=== PATIENT | male | born 1975 | race Caucasian/White ===

== ENCOUNTER 2018-09-29 22:18 | Inpatient (IN) | payer OTHER ==
[2018-09-29] MEDS ORDERED: ACETAMINOPHEN 500 MG TAB PO PRN (23:19)
[2018-09-29] MEDS ORDERED: ALPRAZOLAM 0.25 MG TABLET PO PRN (23:19)
[2018-09-29] MEDS ORDERED: ONDANSETRON 4 MG/2 ML VIAL IV PRN (23:19)
[2018-09-29] MEDS ORDERED: Levofloxacin500mg IV 500 MG/100 ML BAG IV SCH (23:45)
[2018-09-30] MEDS: NA CHLORIDE 0.9% 1,000 ML IV SCH ×3 (00:08→19:45)
[2018-09-30] MEDS: MORPHINE 2 MG/ML SYR IV PRN ×5 (00:38→21:35)
[2018-09-30] MEDS: METRONIDAZOLE 500mg IVPB 500 MG/100 ML BAG IV SCH ×4 (00:42→17:22)
[2018-09-30] MEDS ORDERED: Levofloxacin500mg IV 500 MG/100 ML BAG IV ONE (01:00)
[2018-09-30 03:36] VITALS: BMI 26.4
[2018-09-30 06:08] LABS: Absolute Lymphocytes (CBC) 1.2 K/uL (0.7-4.9); Absolute Monocytes 1.1 K/uL (0.1-1.3); Absolute Neutrophil 7.2 K/uL (1.8-8.0); Basophils % 0.5 % (0-1.3); Eosinophils % 4.5 % (0-4.4); Hematocrit 42.9 % (39.6-49.0); Lymphocytes % 12.4 % (15.3-44.8); MPV 9.4 fL (7.6-11.3); Monocytes % 10.6 % (3.3-12.3); RBC Red Blood Cell Count 4.71 M/uL (4.33-5.43)
[2018-09-30 06:18] LABS: Albumin 2.9 g/dL (3.4-5.0); Bilirubin Total 0.3 mg/dL (0.2-1.0); Potassium 3.9 mmol/L (3.5-5.1); Protein, Total 6.7 g/dL (6.4-8.2)
[2018-09-30] MEDS ORDERED: POTASSIUM PHOS IN 0.9 % NACL 15 MMOL/250 ML BAG IV ONE (07:53)
[2018-09-30] MEDS ORDERED: KCL 20 MEQ/100 mL IVPB 20 MEQ/100 ML BAG IV SCH (08:00)
[2018-09-30] MEDS ORDERED: INFLUENZA VACCINE (for 3y+) 0.5 ML DOSE IMVAC ONE (08:00)
--- NOTE | 2018-09-30 08:57 | P.HP ---
Certification for Inpatient Patient admitted to: Inpatient With expected LOS: >2 Midnights Patient will require the following post-hospital care: None Practitioner: I am a practitioner with admitting privileges, knowledge of patient current condition, hospital course, and medical plan of care. Services: Services provided to patient in accordance with Admission requirements found in Title 42 Section 412.3 of the Code of Federal Regulations Patient History Date of Service: 09/29/18 Reason for admission: Diverticulitis with microabscesses History of Present Illness: Patient is a 43-year-old gentleman who came to the ER across the street with abdominal pain. Patient was seen at [place] emergency room. Patient had his CT scan performed which showed diverticulitis. Patient also has some microabscesses. He was transfer to our hospital for further treatment with IV antibiotics and surgical consultation. Patient has had prior diverticulitis with no follow-up call colonoscopy. He will need to get this scheduled as an outpatient. At this time, will admit him to the hospital for IV hydration and antibiotic therapy. Allergies Penicillins Allergy (Verified 09/29/18 23:33) [facility] Home Medications: Naproxen Sodium [Aleve] 220 mg PO Q6H 09/29/18 Omeprazole [Prilosec] 40 mg PO DAILY 09/29/18 - Past Medical/Surgical History Has patient received pneumonia vaccine in the past: No Diabetic: No -: Diverticulosis/Diverticulitis 2 years ago -: Ghanshyam Hearing loss -: GERD -: Stapendectomy - Family History Father Medical History: Heart disease, Hypertension, Cancer Notes: Prostate Cx Mother Medical History: Heart disease, Hypertension, Diabetes, Cancer Notes: Breast Cx - Social History Smoking Status: Never smoker Alcohol use: Yes CD- Drugs: No Caffeine use: Yes Place of Residence: Home Review of Systems 10-point ROS is otherwise unremarkable Physical Examination - Vital Signs Temperature: 98.1 F Blood Pressure: 110/65 Pulse: 72 Respirations: 16 Pulse Ox (%): 97 - Physical Exam General: Alert, In no apparent distress, Oriented x3 HEENT: Atraumatic, PERRLA, Mucous membr. moist/pink, EOMI, Sclerae nonicteric Neck: Supple, 2+ carotid pulse no bruit, No LAD, Without JVD or thyroid abnormality Respiratory: Clear to auscultation bilaterally, Normal air movement Cardiovascular: Regular rate/rhythm, Normal S1 S2, No murmurs Gastrointestinal: Normal bowel sounds, Soft and benign, Non-distended, Tenderness, Rebound, Guarding Musculoskeletal: No clubbing, No swelling, No tenderness Integumentary: No rashes Neurological: Normal gait, Normal speech, Normal strength at 5/5 x4 extr, Normal tone, Sensation intact, Cranial nerves 3-12 intact, Normal affect Lymphatics: No axilla or inguinal lymphadenopathy - Studies Laboratory Data (last 24 hrs) 09/30/18 05:40: Sodium 142, Potassium 3.9, BUN 16, Creatinine 0.96, Glucose 105 , Phosphorus 2.0 L, Magnesium 2.0, Total Bilirubin 0.3, AST 12 L, ALT 24, Alkaline Phosphatase 99 09/30/18 05:40: WBC 9.9, Hgb 14.5, Hct 42.9, Plt Count 240 Assessment & Plan - Problems (Diagnosis) (1) Diverticulitis of colon with perforation Current Visit: Yes Status: Acute - Plan 1. Continue with IV hydration 2. Continue with IV antibiotics 3. Continue with pain control 4. NPO 5. General surgery consultation; outpatient colonoscopy in 6-12 weeks 6. Serial H&H, and we will monitor CBC, BMP, LFTs and lipase along with electrolytes. 7. GI and DVT prophylaxis Discharge Plan: Home Plan to discharge in: Greater than 2 days - Advance Directives Does patient have a Living Will: No Does patient have a Durable POA for Healthcare: No - Code Status/Comfort Care Code Status Assessed: Yes Code Status: Full Code Critical Care: No Time Spent Managing PTS Care (In Minutes): 45
[2018-09-30] MEDS: ENOXAPARIN 40 MG/0.4 ML SQ SCH (09:06)
--- NOTE | 2018-09-30 17:54 | P.PN ---
Subjective Date of Service: 09/30/18 Chief Complaint: Diverticulitis with microabscesses pt still having abdominal pain, denied nausea or vomting ,pt is NPO no diarrhea today continue abx IV advance diet as tolerated Review of Systems 10-point ROS is otherwise unremarkable Physical Examination - Vital Signs Temperature: 98.7 F Blood Pressure: 119/75 Pulse: 56 Respirations: 16 Pulse Ox (%): 98 - Physical Exam General: Alert, Oriented x3 HEENT: Atraumatic, Normocephalic, PERRLA Neck: Supple, JVD not distended Respiratory: Clear to auscultation bilaterally, Normal air movement Cardiovascular: Normal pulses, Regular rate/rhythm, Normal S1 S2 Gastrointestinal: Normal bowel sounds, Soft and benign, Non-distended, Tenderness Neurological: Normal strength at 5/5 x4 extr - Studies Laboratory Data (last 24 hrs) 09/30/18 05:40: Sodium 142, Potassium 3.9, BUN 16, Creatinine 0.96, Glucose 105 , Phosphorus 2.0 L, Magnesium 2.0, Total Bilirubin 0.3, AST 12 L, ALT 24, Alkaline Phosphatase 99 09/30/18 05:40: WBC 9.9, Hgb 14.5, Hct 42.9, Plt Count 240 Assessment And Plan - Current Problems (Diagnosis) (1) Diverticulitis Current Visit: Yes Status: Acute - Plan diverticulitis with micro abscess Keep NPO for now IV fluid hydration IV antibiotics Advance diet as tolerated Surgery consult Pain management DVT prophylaxis Discharge Plan: Home Plan to discharge in: 48 Hours
[2018-09-30] MEDS: Levofloxacin500mg IV 500 MG/100 ML BAG IV SCH (21:35)
[2018-10-01] MEDS: METRONIDAZOLE 500mg IVPB 500 MG/100 ML BAG IV SCH ×5 (00:35→23:39)
[2018-10-01] MEDS ORDERED: SODIUM CHLORIDE 0.9% 10ML INJ IV PRN (00:43)
[2018-10-01] MEDS ORDERED: PANTOPRAZOLE 40 MG INJ IVP ONE (00:43)
[2018-10-01] MEDS: NA CHLORIDE 0.9% 1,000 ML IV SCH ×3 (06:30→21:19)
[2018-10-01] MEDS: ENOXAPARIN 40 MG/0.4 ML SQ SCH (08:33)
[2018-10-01] MEDS ORDERED: POTASSIUM PHOS IN 0.9 % NACL 15 MMOL/250 ML BAG IV ONE (09:00)
--- NOTE | 2018-10-01 12:58 | P.PN ---
Subjective Date of Service: 10/01/18 Chief Complaint: Diverticulitis with microabscesses Subjective: Improving (Pain free at this time, hungry, passing gas) Physical Examination - Vital Signs Temperature: 98 F Blood Pressure: 112/69 Pulse: 78 Respirations: 16 Pulse Ox (%): 98 - Physical Exam General: Alert, Oriented x3 Gastrointestinal: Soft and benign, No tenderness, No masses, No rebound, No guarding Assessment And Plan - Current Problems (Diagnosis) (1) Diverticulitis Current Visit: Yes Status: Acute Plan: - clear liquid diet - advance to low residue - serial exams - DC soon with follow up in clinic in 2-4 weeks to plan colonoscopy
--- NOTE | 2018-10-01 17:19 | P.PN ---
Subjective Date of Service: 10/01/18 Chief Complaint: Diverticulitis with microabscesses pt is sen and examined feeling better denied abdomial pain diet advanced to clear liquid and if pt tolerates advance to low residue Review of Systems 10-point ROS is otherwise unremarkable Physical Examination - Vital Signs Temperature: 98.7 F Blood Pressure: 118/75 Pulse: 73 Respirations: 16 Pulse Ox (%): 98 - Physical Exam General: Alert, Oriented x3 HEENT: Atraumatic, Normocephalic, PERRLA Neck: JVD not distended Respiratory: Clear to auscultation bilaterally, Normal air movement Cardiovascular: Normal pulses, Regular rate/rhythm, Normal S1 S2 Gastrointestinal: Normal bowel sounds, Soft and benign, Non-distended Musculoskeletal: No clubbing, No swelling Integumentary: No rashes Neurological: Normal speech, Normal strength at 5/5 x4 extr Assessment And Plan - Current Problems (Diagnosis) (1) Diverticulitis Current Visit: Yes Status: Acute - Plan diverticulitis with micro abscess advance diet as tolerated IV fluid hydration IV antibiotics Surgery consult Pain management DVT prophylaxis Discharge Plan: Home Plan to discharge in: 24 Hours
--- NOTE | 2018-10-01 17:39 | CON ---
Date of Consultation: 09/30/2018 Brief History Of Present Illness: The patient is a 43-year-old gentleman, who came to the ER from [facility] across the street where he developed left lower quadrant abdominal pain, similar to previous epis odes before in the past. He noted that the pain got significantly worse and increased. He had decre ased output and had some nausea associated with it and minimal nausea. He has had similar episodes a pproximately 2 years prior and has a history of known diverticulitis, which was treated approximately 2 years ago of a similar type. He went to [facility] at that time and ultimately had a CT scan, which sh owed an intramural abscess approximately 1 cm in this region of the sigmoid colon with evidence of si gmoid diverticulitis. As such, he was transferred here for further treatment. Past Medical History: Significant for diverticulitis, bilateral hearing loss, GERD. Past Surgical History: Stapedectomy. Family History: Father has history of heart disease, hypertension, cancer, and prostate cancer. Allergies: PENICILLIN. Home Medications: Include Aleve and Prilosec. Social History: He denies smoking or alcohol. He denies any recreational drug use, but he does use tobacco products with dip. Review of Systems: Ten-point review of systems other than HPI, denies. Physical Examination: Vital Signs: At the time of my examination; his vital signs were a BMI of 26.5. His blood pressure 138/73, respiratory rate 20, temperature 97.9. General: He is awake, alert, and oriented. Psychiatric: Appropriate, conversive. HEENT: Normocephalic. Sclerae icteric. Mucous membranes are moist. Oropharynx is clear. Neck: Supple. No JVD. Chest: Normal expansion and excursion. Cardiovascular: Regular rate and rhythm. Pulmonary: Clear to auscultation bilaterally. Abdomen: Soft with mild left lower quadrant tenderness to palpation. No rebound. No guarding. No focal peritonitis. There are no obvious hernias. The remainder of the abdominal exam is essentially benign. Extremities: No clubbing, cyanosis, or edema. Skin: Warm and dry. Laboratory Data: Reveals a white blood cell count of 9.9, hemoglobin is 14.5, hematocrit 42.9, plate let count is 240. Neutrophils were normal at 72%. His sodium is 142, potassium 3.9, chloride 109, c arbon dioxide 27, BUN 16, creatinine is 0.96, glucose is 105, lactic acid 1.2, phosphorus is 2.0, mag nesium 2.0, total bilirubin 0.3, AST is 12, ALT 24, alkaline phosphatase of 99. He had a CT scan of the abdomen and pelvis as described above. Assessment And Plan: This is a 43-year-old male, who comes in with recurrent episode of complicated diverticulitis with diverticular abscess. 1.IV fluid hydration. 2.Antibiotic coverage. 3.Serial abdominal exams. 4.I have explained the risks, benefits, and alternatives of surgical versus nonoperative management. We will attempt nonoperative management at this time. Should he improve, we will start p.o. diet a nd advance him at that point. He will require colonoscopy after resolution of his diverticulitis as an outpatient workup and discussion of surgical intervention at that time after the findings of colon oscopy have been elicited. The patient agrees to proceed as indicated. Thank you for this interesting consult. SUJRIT Voice ID: [id number] Report ID: [id number]
[2018-10-01] MEDS: Levofloxacin500mg IV 500 MG/100 ML BAG IV SCH (21:11)
[2018-10-02] MEDS: MORPHINE 2 MG/ML SYR IV PRN (03:47)
[2018-10-02 04:29] LABS: Phosphorus 2.4 mg/dL (2.5-4.9); Potassium 3.9 mmol/L (3.5-5.1)
[2018-10-02] MEDS: POTASS/SODIUM PHOSPHATE 1 PKT POWD.PACK PO SCH ×3 (05:59→10:38)
[2018-10-02] MEDS: METRONIDAZOLE 500mg IVPB 500 MG/100 ML BAG IV SCH ×2 (05:59→12:00)
[2018-10-02] MEDS: ENOXAPARIN 40 MG/0.4 ML SQ SCH (08:15)
[2018-10-02] MEDS ORDERED: POTASSIUM CL SA 10 MEQ TAB PO SCH (09:00)
[2018-10-02 11:36] VITALS: O2SAT 97
[2018-10-02] MEDS: NA CHLORIDE 0.9% 1,000 ML IV SCH (11:45)
[2018-10-02 12:30] VITALS: BP 127/81; TEMP 98.7
--- NOTE | 2018-10-02 14:33 | P.DS ---
Admission Date: 09/29/18 Discharge Date: 10/02/18 Primary Care Provider: none Disposition: ROUTINE DISCHARGE Discharge Condition: GOOD Reason for Admission: Diverticulitis with microabscesses Consultations: Surgery-Dr. Pitt Procedures: Medical problem list: Left lower quadrant abdominal pain secondary to recurrent sigmoid diverticulitis with intramural diverticular abscess Brief History of Present Illness: 43-year-old male presented to the hospital as a direct transfer from [facility]. Patient found to have recurrent diverticulitis with intramural abscess. Patient was admitted for further evaluation and treatment. Hospital Course: Patient presented with left lower quadrant abdominal pain. Patient found to have recurrent sigmoid diverticulitis and intramural diverticular abscess measuring 1 cm. Patient was treated with IV antibiotic therapy. Patient improved. Patient seen and evaluated by surgery. No surgical intervention needed at this time. At discharge patient able to tolerate his diet. At discharge he will continue with Levaquin 500 mg daily and Flagyl 500 mg 3 times a day for 10 days. Patient will follow up with surgery within 1 week. Patient may require surgical intervention in the future along with colonoscopy. This can be further addressed by surgery. At discharge patient will continue with a low residue diet. Vital Signs/Physical Exam: Temp Pulse Resp BP Pulse Ox 98.7 F 78 16 127/81 99 10/02/18 12:00 10/02/18 12:00 10/02/18 12:00 10/02/18 12:00 10/02/18 12:00 General: Alert, In no apparent distress, Oriented x3, Cooperative HEENT: Atraumatic Neck: Supple Respiratory: Clear to auscultation bilaterally, Normal air movement Cardiovascular: Normal pulses, Regular rate/rhythm Gastrointestinal: Normal bowel sounds, Soft and benign, Non-distended, No ascites, No tenderness, No masses, No rebound, No guarding Musculoskeletal: No erythema, No tenderness, No warmth Integumentary: No tenderness/swelling, No erythema, No warmth, No cyanosis Neurological: Normal speech, Normal strength at 5/5 x4 extr, Normal tone, Normal affect Laboratory Data at Discharge: WBC 9.9 K/uL (4.3-10.9) 09/30/18 05:40 Hgb 14.5 g/dL (13.6-17.9) 09/30/18 05:40 Hct 42.9 % (39.6-49.0) 09/30/18 05:40 Plt Count 240 K/uL (152-406) 09/30/18 05:40 Sodium 142 mmol/L (136-145) 09/30/18 05:40 Potassium 3.9 mmol/L (3.5-5.1) 10/02/18 03:54 BUN 16 mg/dL (7-18) 09/30/18 05:40 Creatinine 0.96 mg/dL (0.55-1.3) 09/30/18 05:40 Glucose 105 mg/dL (74-106) 09/30/18 05:40 Phosphorus 2.4 mg/dL (2.5-4.9) L 10/02/18 03:54 Magnesium 2.0 mg/dL (1.8-2.4) 09/30/18 05:40 Total Bilirubin 0.3 mg/dL (0.2-1.0) 09/30/18 05:40 AST 12 U/L (15-37) L 09/30/18 05:40 ALT 24 U/L (12-78) 09/30/18 05:40 Alkaline Phosphatase 99 U/L (45-117) 09/30/18 05:40 Home Medications: Naproxen Sodium [Aleve] 220 mg PO Q6H 09/29/18 Omeprazole [Prilosec] 40 mg PO DAILY 09/29/18 Levofloxacin [Levaquin] 500 mg PO DAILY #10 tablet 10/02/18 metroNIDAZOLE [Flagyl] 500 mg PO Q8H #30 tablet 10/02/18 New Medications: Levofloxacin [Levaquin] 500 mg PO DAILY #10 tablet metroNIDAZOLE [Flagyl] 500 mg PO Q8H #30 tablet Patient Discharge Instructions: 1. Patient will follow up with surgery within 1 week. 2. Patient with recurrent sigmoid diverticulitis and intramural diverticular abscess measuring 1 cm. Patient was treated with IV antibiotic therapy. Patient improved. Patient seen and evaluated by surgery. No surgical intervention needed at this time. At discharge patient able to tolerate his diet. At discharge he will continue with Levaquin 500 mg daily and Flagyl 500 mg 3 times a day for 10 days. Patient will follow up with surgery within 1 week. Patient may require surgical intervention in the future along with colonoscopy. This can be further addressed by surgery. At discharge patient will continue with a low residue diet. Diet: GI soft diet, low residue diet Activity: Ad christine Time spent managing pt's care (in minutes): 55
== END 2018-10-02 14:00 | disposition home or self-care (01) | DRG 392 ==
LOC: 4TH 22:33
PROVIDERS: ADMIT Hospitalist; ATTEND Hospitalist
DX: K57.20 Diverticulitis of large intestine with perforation and abscess without bleeding (principal); K21.9 Gastro-esophageal reflux disease without esophagitis
CPT/HCPCS: 36415; 80053; 83605; 83735; 84100; 84132; 85025; C9113; J1650; J2270; J7030

== ENCOUNTER 2019-01-17 08:15 | Day surgery (SDC) | payer OTHER ==
[2019-01-17] MEDS ORDERED: Ringers Lactate 1,000 ML IV ONE (09:25)
[2019-01-17] MEDS ORDERED: PROPOFOL 200 MG/20 ML VIAL IV ONE (10:35)
[2019-01-17] MEDS ORDERED: LIDOCAINE 1% MPF 5 ML VIAL ONE (10:42)
--- NOTE | 2019-01-17 10:45 | ENDO RPT ---
[address], [address] COLONOSCOPY PROCEDURE REPORT EXAM DATE: 01/17/2019 PATIENT NAME: Kurtis Lobo MR #: [id number] BIRTHDATE: 1975 ATTENDING: Volodymyr Pitt DR STATUS: outpatient INSEAM LEVELER: Neno Pham RN, Jerica Tran RN, and German Persaud [facility] INDICATIONS: The patient is a 43 yr old Male here for a colonoscopy due to diverticulitis PROCEDURE PERFORMED: Screening Colonoscopy MEDICATIONS: Per Anesthesia. ESTIMATED BLOOD LOSS: None CONSENT: The patient understands the risks and benefits of the procedure and understands that these risks include, but are not limited to: sedation, allergic reaction, infection, perforation and/or bleeding. Alternative means of evaluation and treatment include, among others: physical exam, x-rays, and/or surgical intervention. The patient elects to proceed with this endoscopic procedure. DESCRIPTION OF PROCEDURE: During intra-op preparation period all mechanical medical equipment was checked for proper function. Hand hygiene and appropriate measures for infection prevention was taken. Procedure, possible complications, alternatives including, but not limited to possibility of bleeding, perforation, tear, infection, sepsis, need for surgery, need for blood transfusion, were explained to the patient. After the risks, benefits and alternatives of the procedure were thoroughly explained, Informed consent was verified, confirmed and timeout was successfully executed by the treatment team. The patient was placed in the left lateral position. A digital rectal exam was performed and revealed internal hemorrhoids. After appropriate level of anesthesia, the scope was passed. The EC-[id number] ([id number]) endoscope was introduced through the anus and advanced to the cecum, which was identified by both the appendix and ileocecal valve. The quality of the prep was poor. The instrument was then slowly withdrawn as the colon was fully examined. Scope withdrawal time was 8 minutes. COLON FINDINGS: There was moderate diverticulosis noted in the sigmoid colon with associated inflammatory changes. No bleeding was noted from the diverticulosis. Small internal hemorrhoids were found. Retroflexed views revealed small hemorrhoids. The scope was then completely withdrawn from the patient and the procedure terminated. ADVERSE EVENTS: There were no complications. IMPRESSIONS: There was moderate diverticulosis noted in the sigmoid colon RECOMMENDATIONS: 1. avoid NSAIDS for 2 weeks 2. follow-up: office 2 week(s) 3. Monitor for any evidence of rectal bleeding. 4. hemorrhoidal hygiene 5. increase dietary water 6. low fiber / diverticular diet 7. low residue diet RECALL: Return in 5 year(s) for Colonoscopy. Poor Prep Volodymyr Pitt DR eSigned: Volodymyr Pitt DR 01/17/2019 10:45 AM cc: CPT CODES: ICD9 CODES: PATIENT NAME: Kurtis Lobo Varghese MR#: [id number]
[2019-01-17 11:10] VITALS: O2SAT 97
[2019-01-17 12:41] VITALS: BP 122/74; TEMP 98
== END 2019-01-17 11:11 | disposition home or self-care (01) ==
LOC: OR 08:15
PROVIDERS: ATTEND Surgery
PROC: 0DJD8ZZ Inspection of Lower Intestinal Tract, Via Natural or Artificial Opening Endoscopic (ICD-10-PCS; principal; 2019-01-17 10:45)
DX: Z12.11 Encounter for screening for malignant neoplasm of colon (principal); K21.9 Gastro-esophageal reflux disease without esophagitis; Z79.899 Other long term (current) drug therapy; K57.30 Diverticulosis of large intestine without perforation or abscess without bleeding; Z87.19 Personal history of other diseases of the digestive system
CPT/HCPCS: J2704

== ENCOUNTER 2019-04-28 06:14 | Emergency (ER) | payer OTHER ==
[2019-04-28] MEDS ORDERED: ONDANSETRON 4 MG/2 ML VIAL ONE (06:51)
[2019-04-28] MEDS ORDERED: NA CHLORIDE 0.9% 1,000 ML ONE (06:51)
[2019-04-28] MEDS ORDERED: MORPHINE 4 MG/ML SYR ONE ×2 (06:51→08:44)
[2019-04-28 07:10] LABS: Absolute Lymphocytes (CBC) 1.8 K/uL (0.7-4.9); Basophils % 0.7 % (0-1.3); Hematocrit 45.9 % (39.6-49.0); Lymphocytes % 25.4 % (15.3-44.8); MPV 8.9 fL (7.6-11.3); RBC Red Blood Cell Count 5.01 M/uL (4.33-5.43)
[2019-04-28 07:31] LABS: Albumin 4.1 g/dL (3.4-5.0); Bilirubin Direct 0.1 mg/dL (0-0.2); Bilirubin Total 0.4 mg/dL (0.2-1.0); Potassium 3.8 mmol/L (3.5-5.1); Protein, Total 7.7 g/dL (6.4-8.2)
--- NOTE | 2019-04-28 08:06 | RAD REPORT ---
EXAM DESCRIPTION: CTAbdomen Pelvis W Contrast - 04/28/2019 7:43 am CLINICAL HISTORY: Abdominal pain. LLQ abd pain COMPARISON: Abdomen Pelvis W Contrast dated 10/28/2018 TECHNIQUE: Biphasic CT imaging of the abdomen and pelvis was performed with 100 ml non-ionic IV cont rast. All CT scans are performed using dose optimization technique as appropriate and may include automated exposure control or mA/KV adjustment according to patient size. FINDINGS: The lung bases are clear.Small hiatal hernia. The liver, spleen, pancreas, adrenal glands and kidneys are within normal limits. No bowel obstruction, free air, free fluid or abscess. Sigmoid diverticulosis coli without diverticul itis. The appendix is normal. No evidence of significant lymphadenopathy. No suspicious bony findings. IMPRESSION: No acute intra-abdominal or pelvic finding. Sigmoid diverticulosis coli without diverticulitis.
[2019-04-28 09:06] LABS: Urine Blood NEGATIVE (NEG); Urine Glucose NEGATIVE (NEG); Urine Protein NEGATIVE (NEG); Urine Specific Gravity <1.005 (1.005-1.030)
[2019-04-28 09:37] LABS: Urine Bacteria <20 /HPF (NONE SEEN); Urine RBC <5 /HPF (NONE SEEN)
[2019-04-28 09:38] LABS: Urine Culture Reflex Order NOT NEEDED
--- NOTE | 2019-04-28 09:49 | ER ---
Nurse's Notes [facility] Name: Kurtis Lobo Age: 44 yrs Sex: Male : 1975 Arrival Date: 04/28/2019 Time: 06:15 Bed 8 Private MD: Diagnosis: Unspecified abdominal pain Presentation: 04/28 06:37 Presenting complaint: Patient states: he has history of diverticulosis with 2 episodes bb of diverticulitis he is scheduling surgery with Dr Pitt when his insurance is in place but yesterday started having LLQ pain radiating to his left testicle the pain is worsening feels like a squeezing pain with intermittent sharp pain and currently is 7/10. Transition of care: patient was not received from another setting of care. Onset of symptoms was April 27, 2019. Risk Assessment: Do you want to hurt yourself or someone else? Patient reports no desire to harm self or others. Initial Sepsis Screen: Does the patient meet any 2 criteria? No. Patient's initial sepsis screen is negative. Does the patient have a suspected source of infection? No. Patient's initial sepsis screen is negative. Care prior to arrival: None. 06:37 Method Of Arrival: Ambulatory bb 06:37 Acuity: GEOFFREY 3 bb Historical: - Allergies: 06:41 PENICILLINS; bb 06:41 Champagne; bb - Home Meds: 06:41 Tramadol Oral [Active]; Xanax Oral [Active]; Omeprazole Oral [Active]; bb - PMHx: 06:41 Diverticulitis; bb - PSHx: 06:41 R stapendectomy; bb - Immunization history:: Adult Immunizations up to date. - Social history:: Smoking status: Patient uses tobacco products, chewing tobacco, Patient uses alcohol, occasionally. - Ebola Screening: : No symptoms or risks identified at this time. Screenin:34 Abuse screen: Denies threats or abuse. Nutritional screening: No deficits noted. tw2 Tuberculosis screening: No symptoms or risk factors identified. Fall Risk None identified. Assessment: 07:00 General: Appears uncomfortable, Behavior is calm, cooperative, appropriate for age. tw2 Pain: Complains of pain in abdomen. Neuro: Level of Consciousness is awake, alert, obeys commands, Oriented to person, place, time, situation. Cardiovascular: Heart tones S1 S2 Patient's skin is warm and dry. Respiratory: Airway is patent Respiratory effort is even, unlabored, Respiratory pattern is regular, symmetrical, Breath sounds are clear bilaterally. GI: Abdomen is flat, Bowel sounds present X 4 quads. Abd is soft X 4 quads Reports lower abdominal pain, upper abdominal pain. : No signs and/or symptoms were reported regarding the genitourinary system. EENT: No signs and/or symptoms were reported regarding the EENT system. Derm: No signs and/or symptoms reported regarding the dermatologic system. Musculoskeletal: Range of motion: intact in all extremities. 07:34 Reassessment: Patient appears in no apparent distress at this time. No changes from tw2 previously documented assessment. Patient and/or family updated on plan of care and expected duration. Pain level reassessed. Patient is alert, oriented x 3, equal unlabored respirations, skin warm/dry/pink. 08:56 Reassessment: Patient appears in no apparent distress at this time. Patient and/or tw2 family updated on plan of care and expected duration. Pain level reassessed. Patient is alert, oriented x 3, equal unlabored respirations, skin warm/dry/pink. 09:41 Reassessment: Patient appears in no apparent distress at this time. Patient and/or tw2 family updated on plan of care and expected duration. Pain level reassessed. Patient is alert, oriented x 3, equal unlabored respirations, skin warm/dry/pink. 10:14 Reassessment: Patient discharge pending completion of IV antibiotics. aj1 10:30 Reassessment: Patient appears in no apparent distress at this time. No changes from aj1 previously documented assessment. Patient and/or family updated on plan of care and expected duration. Pain level reassessed. Patient is alert, oriented x 3, equal unlabored respirations, skin warm/dry/pink. 11:30 Reassessment: Patient states that he would like another dose of pain medication prior aj1 to discharge. Notified Nelia Felder NP. Vital Signs: 06:41 BP 129 / 97; Pulse 67; Resp 14 S; Temp 97.4(O); Pulse Ox 100% on R/A; Weight 78.47 kg bb (R); Height 5 ft. 8 in. (172.72 cm) (R); Pain 7/10; 07:34 BP 138 / 99; Pulse 55; Resp 17; Pulse Ox 100% on R/A; tw2 08:56 BP 127 / 86; Pulse 75; Resp 17; Pulse Ox 100% on R/A; Pain 6/10; tw2 09:41 BP 134 / 97; Pulse 66; Resp 17; Pulse Ox 100% on R/A; tw2 10:30 BP 128 / 76; Pulse 76; Resp 18; Pulse Ox 100% on R/A; aj1 11:30 BP 132 / 79; Pulse 73; Resp 18; Pulse Ox 97% on R/A; aj1 12:00 BP 127 / 83; Pulse 69; Resp 18; Pulse Ox 97% on R/A; aj1 06:41 Body Mass Index 26.30 (78.47 kg, 172.72 cm) bb ED Course: 06:15 Patient arrived in ED. ag3 06:32 Ayo Felder NP is PHCP. pm1 06:32 Wisam Meza MD is Attending Physician. pm1 06:37 Krystin Naranjo, RN is Primary Nurse. ak1 06:39 Triage completed. bb 06:41 Arm band placed on Patient placed in an exam room, on a stretcher, on pulse oximetry. bb Family accompanied patient. 06:45 Inserted saline lock: 18 gauge in right antecubital area, using aseptic technique. ds4 Blood collected. 06:49 Basic Metabolic Panel Sent. ds4 06:49 CBC with Diff Sent. ds4 06:49 Creatinine for Radiology Sent. ds4 06:49 Hepatic Function Sent. ds4 06:49 Lipase Sent. ds4 07:35 Call light in reach. tw2 07:43 CT completed. Patient tolerated procedure well. Patient moved to CT via wheelchair. sw Patient moved back from CT. 07:44 CT Abd/Pelvis - IV Contrast Only In Process Unspecified. EDMS 08:33 Urine collected: clean catch specimen, clear. ms 08:58 Primary Nurse role handed off by Krystin Naranjo, YANY tw2 08:58 Pamela Malave, YANY is Primary Nurse. tw2 12:00 No provider procedures requiring assistance completed. IV discontinued, intact, aj1 bleeding controlled, No redness/swelling at site. Pressure dressing applied. Administered Medications: 07:07 Drug: NS 0.9% 1000 ml Route: IV; Rate: 1 bolus; Site: right antecubital; ak1 08:56 Follow up: IV Status: Completed infusion; IV Intake: 1000ml tw2 07:07 Drug: Zofran 4 mg Route: IVP; Site: right antecubital; ak1 08:56 Follow up: Response: No adverse reaction; Nausea is decreased tw2 07:07 Drug: morphine 4 mg Route: IVP; Site: right antecubital; ak1 08:55 Follow up: Response: No adverse reaction; Pain is decreased; RASS: Alert and Calm (0) tw2 08:55 Drug: morphine 4 mg Route: IVP; Site: right antecubital; tw2 10:00 Follow up: Response: No adverse reaction; RASS: Alert and Calm (0) aj1 10:13 Drug: Flagyl 500 mg Volume: 100 ml; Route: IVPB; Rate: 200 ml/hr; Infused Over: 30 aj1 mins; Site: right antecubital; 11:58 Follow up: IV Status: Completed infusion; IV Intake: 100ml aj1 10:13 Drug: Cipro 500 mg Route: PO; aj1 11:58 Follow up: Response: No adverse reaction aj1 11:57 Drug: [place] (7.5 mg-325 mg) 1 tabs Route: PO; aj1 11:58 Follow up: Response: No adverse reaction aj1 Intake: 08:56 IV: 1000ml; Total: 1000ml. tw 11:58 IV: 100ml; Total: 1100ml. aj1 Outcome: 09:48 Discharge ordered by MD. pm1 12:00 Discharged to home ambulatory. aj1 12:00 Condition: good 12:00 Discharge instructions given to patient, Instructed on discharge instructions, follow up and referral plans. no drinking with medication, no driving heavy equipment, medication usage, Demonstrated understanding of instructions, follow-up care, medications, Prescriptions given X 4. 12:00 Patient left the ED. aj1 Signatures: Dispatcher [employer] EDMS Silvina Haji RN RN aj1 Richelle Martin RN RN bb Villarreal, Maria ms Swanson, Donovan ds4 Krystin Naranjo RN RN ak1 Anu Lazar Patrick, LAURI CHEMICAL TECHNICIAN pm1 Pamela Malave RN RN tw2 Evelin Martell 3
--- NOTE | 2019-04-28 09:49 | EDPHYS ---
Physician Documentation [facility] Name: Kurtis Lobo Age: 44 yrs Sex: Male : 1975 Arrival Date: 04/28/2019 Time: 06:15 Bed 8 Private MD: ED Physician Wisam Meza HPI: 04/28 07:06 This 44 yrs old Male presents to ER via Ambulatory with complaints of pm1 Abdominal Pain. 07:06 The patient presents with abdominal pain in the left lower quadrant. Onset: The pm1 symptoms/episode began/occurred yesterday. The symptoms radiate to left testicle. Associated signs and symptoms: Pertinent positives: occasional burning with urination, onset after intercourse with his on 1 week ago. Loose stools for the past few months since diagnosis of diverticulitis , Pertinent negatives: nausea and vomiting, constipation, fever. The symptoms are described as sharp. Modifying factors: The symptoms are alleviated by nothing, the symptoms are aggravated by touching the area. Severity of pain: in the emergency department the pain is actually worse. The patient has experienced similar episodes in the past, a few times, and the symptoms today are exactly the same, to previous diverticulitis. has appointment with Dr. Mosher on Sunday. Was seeing Dr. Pitt for his diverticulosis/diverticulitis. Was planning to get surgery on sigmoid colon but Sweetie is not covered under his plan. Sweetie referred him to [facility]. Historical: - Allergies: 06:41 PENICILLINS; bb 06:41 Champagne; bb - Home Meds: 06:41 Tramadol Oral [Active]; Xanax Oral [Active]; Omeprazole Oral [Active]; bb - PMHx: 06:41 Diverticulitis; bb - PSHx: 06:41 R stapendectomy; bb - Immunization history:: Adult Immunizations up to date. - Social history:: Smoking status: Patient uses tobacco products, chewing tobacco, Patient uses alcohol, occasionally. - Ebola Screening: : No symptoms or risks identified at this time. ROS: 07:06 Constitutional: Negative for fever, chills, and weight loss, Eyes: Negative for injury, pm1 pain, redness, and discharge, ENT: Negative for injury, pain, and discharge, Neck: Negative for injury, pain, and swelling, Cardiovascular: Negative for chest pain, palpitations, and edema, Respiratory: Negative for shortness of breath, cough, wheezing, and pleuritic chest pain. 07:06 Back: Negative for injury and pain, MS/Extremity: Negative for injury and deformity, Skin: Negative for injury, rash, and discoloration, Neuro: Negative for headache, weakness, numbness, tingling, and seizure. 07:06 Abdomen/GI: Positive for abdominal pain, of the left lower quadrant, Negative for nausea, vomiting, and diarrhea. 07:06 : Positive for burning with urination, occasionally. Exam: 07:06 Constitutional: This is a well developed, well nourished patient who is awake, alert, pm1 and in no acute distress. Head/Face: Normocephalic, atraumatic. Neck: Trachea midline, no thyromegaly or masses palpated, and no cervical lymphadenopathy. Supple, full range of motion without nuchal rigidity, or vertebral point tenderness. No Meningismus. Chest/axilla: Normal chest wall appearance and motion. Nontender with no deformity. No lesions are appreciated. Cardiovascular: Regular rate and rhythm with a normal S1 and S2. No gallops, murmurs, or rubs. Normal PMI, no JVD. No pulse deficits. Respiratory: Lungs have equal breath sounds bilaterally, clear to auscultation and percussion. No rales, rhonchi or wheezes noted. No increased work of breathing, no retractions or nasal flaring. 07:06 Back: No spinal tenderness. No costovertebral tenderness. Full range of motion. Skin: Warm, dry with normal turgor. Normal color with no rashes, no lesions, and no evidence of cellulitis. MS/ Extremity: Pulses equal, no cyanosis. Neurovascular intact. Full, normal range of motion. 07:06 Abdomen/GI: Inspection: abdomen appears normal, Bowel sounds: normal, Palpation: soft, mild abdominal tenderness, in the left lower quadrant, focal area, mass, is not appreciated, rebound tenderness, is not appreciated. 07:06 Neuro: Orientation: is normal, Motor: is normal, moves all fours. Vital Signs: 06:41 BP 129 / 97; Pulse 67; Resp 14 S; Temp 97.4(O); Pulse Ox 100% on R/A; Weight 78.47 kg bb (R); Height 5 ft. 8 in. (172.72 cm) (R); Pain 7/10; 07:34 BP 138 / 99; Pulse 55; Resp 17; Pulse Ox 100% on R/A; tw2 08:56 BP 127 / 86; Pulse 75; Resp 17; Pulse Ox 100% on R/A; Pain 6/10; tw2 09:41 BP 134 / 97; Pulse 66; Resp 17; Pulse Ox 100% on R/A; tw2 10:30 BP 128 / 76; Pulse 76; Resp 18; Pulse Ox 100% on R/A; aj1 11:30 BP 132 / 79; Pulse 73; Resp 18; Pulse Ox 97% on R/A; aj1 12:00 BP 127 / 83; Pulse 69; Resp 18; Pulse Ox 97% on R/A; aj1 06:41 Body Mass Index 26.30 (78.47 kg, 172.72 cm) bb MDM: 06:32 Patient medically screened. pm1 09:47 Data reviewed: vital signs. Data interpreted: Pulse oximetry: on room air is 100 %. pm1 Interpretation: normal. Counseling: I had a detailed discussion with the patient and/or guardian regarding: the historical points, exam findings, and any diagnostic results supporting the discharge/admit diagnosis, lab results, radiology results, the need for outpatient follow up, Dr. Johnson as scheduled on Sunday, to return to the emergency department if symptoms worsen or persist or if there are any questions or concerns that arise at home. 11:43 ED course: Has been taking tramadol at home for his pain but ineffective, will d/c home pm1 with tylenol 3. 04/28 06:45 Order name: Basic Metabolic Panel; Complete Time: 07:38 mw2 04/28 06:45 Order name: CBC with Diff; Complete Time: 07:16 mw2 04/28 06:45 Order name: Creatinine for Radiology; Complete Time: 07:29 mw2 04/28 06:45 Order name: Hepatic Function; Complete Time: 07:38 mw2 04/28 06:45 Order name: Lipase; Complete Time: 07:38 mw2 04/28 08:22 Order name: Urine Microscopic Only; Complete Time: 09:47 pm1 04/28 06:52 Order name: CT Abd/Pelvis - IV Contrast Only; Complete Time: 08:15 pm1 04/28 08:40 Order name: Urine Dipstick--Ancillary (enter results); Complete Time: 09:24 bd 04/28 06:45 Order name: IV Saline Lock; Complete Time: 06:49 mw2 04/28 06:45 Order name: Labs collected and sent; Complete Time: 06:49 mw2 04/28 06:50 Order name: NPO; Complete Time: 06:58 pm1 04/28 08:22 Order name: Urine Dipstick-Ancillary (obtain specimen); Complete Time: 08:33 pm1 Administered Medications: 07:07 Drug: NS 0.9% 1000 ml Route: IV; Rate: 1 bolus; Site: right antecubital; ak1 08:56 Follow up: IV Status: Completed infusion; IV Intake: 1000ml tw2 07:07 Drug: Zofran 4 mg Route: IVP; Site: right antecubital; ak1 08:56 Follow up: Response: No adverse reaction; Nausea is decreased tw2 07:07 Drug: morphine 4 mg Route: IVP; Site: right antecubital; ak1 08:55 Follow up: Response: No adverse reaction; Pain is decreased; RASS: Alert and Calm (0) tw2 08:55 Drug: morphine 4 mg Route: IVP; Site: right antecubital; tw2 10:00 Follow up: Response: No adverse reaction; RASS: Alert and Calm (0) aj1 10:13 Drug: Flagyl 500 mg Volume: 100 ml; Route: IVPB; Rate: 200 ml/hr; Infused Over: 30 aj1 mins; Site: right antecubital; 11:58 Follow up: IV Status: Completed infusion; IV Intake: 100ml aj1 10:13 Drug: Cipro 500 mg Route: PO; aj1 11:58 Follow up: Response: No adverse reaction aj1 11:57 Drug: [place] (7.5 mg-325 mg) 1 tabs Route: PO; aj1 11:58 Follow up: Response: No adverse reaction aj1 Disposition: 04/29 04:30 Co-signature as Attending Physician, Wisam Meza MD I agree with the assessment and tw4 plan of care. Disposition: 04/28/19 09:48 Discharged to Home. Impression: Unspecified abdominal pain. - Condition is Stable. - Discharge Instructions: Abdominal Pain, Adult. - Prescriptions for Flagyl 500 mg Oral Tablet - take 1 tablet by ORAL route every 8 hours for 10 days; 30 tablet. Tylenol- Codeine #3 300-30 mg Oral Tablet - take 2 tablets by ORAL route every 6 hours As needed; 20 tablet. Zofran 4 mg Oral Tablet - take 1 tablet by ORAL route every 8 hours As needed; 20 tablet. Cipro 500 mg Oral Tablet - take 1 tablet by ORAL route every 12 hours for 10 days; 20 tablet. - Medication Reconciliation Form, Thank You Letter, Antibiotic Education, Prescription Opioid Use, Work release form, Family Work Release form. - Follow up: Emergency Department; When: As needed; Reason: Worsening of condition. Follow up: Private Physician; When: 2 - 3 days; Reason: Recheck today's complaints, Continuance of care, Re-evaluation by your physician. - Problem is new. - Symptoms have improved. Signatures: Dispatcher [employer] EDMS Silvina Haji RN RN aj1 Richelle Martin RN RN bb Krystin Naranjo RN RN ak1 Ayo Felder, DEPARTMENT COORDINATOR DEPARTMENT COORDINATOR pm1 Pamela Malave RN RN tw2 Wisam Meza MD MD tw4 Manny Chery mw2 Corrections: (The following items were deleted from the chart) 04/28 12:00 09:48 04/28/2019 09:48 Discharged to Home. Impression: Unspecified abdominal pain. aj1 Condition is Stable. Forms are Work release form, Family Work Release, Medication Reconciliation Form, Thank You Letter, Antibiotic Education, Prescription Opioid Use. Follow up: Emergency Department; When: As needed; Reason: Worsening of condition. Follow up: Private Physician; When: 2 - 3 days; Reason: Recheck today's complaints, Continuance of care, Re-evaluation by your physician. Problem is new. Symptoms have improved. pm1
[2019-04-28] MEDS ORDERED: METRONIDAZOLE 500mg IVPB 500 MG/100 ML BAG IV ONE (10:07)
[2019-04-28] MEDS ORDERED: CIPROFLOXACIN HCL 500 MG TAB ONE (10:07)
[2019-04-28] MEDS ORDERED: HYDROCODONE/APAP 7.5/325 MG TAB ONE (11:47)
[2019-04-28 12:08] VITALS: TEMP 97.4
[2019-04-28 12:14] VITALS: O2SAT 97
[2019-04-28 12:15] VITALS: BP 127/83
== END 2019-04-28 12:00 | disposition home or self-care (01) ==
LOC: ER 06:14
DX: R10.32 Left lower quadrant pain (principal); R30.0 Dysuria; F17.220 Nicotine dependence, chewing tobacco, uncomplicated; Z88.0 Allergy status to penicillin; Z91.018 Allergy to other foods
CPT/HCPCS: 96365; 96361; 85025; 80048; 36415; 80076; 83690; 74177; 96375; 99284; 96366; Q9967; J7030; J2405; 81003; 81015

== ENCOUNTER 2019-07-30 21:48 | Emergency (ER) | payer OTHER ==
[2019-07-30] MEDS ORDERED: NA CHLORIDE 0.9% 1,000 ML ONE (22:33)
[2019-07-30 22:51] LABS: Basophils % 0.3 % (0-1.3); Hematocrit 38.5 % (39.6-49.0); MPV 9.2 fL (7.6-11.3)
[2019-07-30 22:55] LABS: Protime INR 1.12
[2019-07-30 23:10] LABS: ALT/SGPT 34 U/L (12-78); AST/SGOT 19 U/L (15-37); Albumin 3.2 g/dL (3.4-5.0); Alkaline Phosphatase 80 U/L (45-117); Amylase Level 33 U/L (25-115); BUN Blood Urea Nitrogen 8 mg/dL (7-18); Bicarbonate 28 mmol/L (21-32); Bilirubin Direct 0.1 mg/dL (0-0.2); Bilirubin Total 0.4 mg/dL (0.2-1.0); CKMB Creatine Kinase MB < 1.0 ng/mL (0.3-3.6); Creatine Phosphokinase 167 U/L (39-308); Glucose Level 98 mg/dL (74-106); Lipase 109 U/L (73-393); Potassium 3.8 mmol/L (3.5-5.1); Protein, Total 6.9 g/dL (6.4-8.2); Sodium Level 141 mmol/L (136-145); Troponin (Emerg Dept Use Only) < 0.02 ng/mL (0.0-0.045)
[2019-07-31 00:12] LABS: Urine Bacteria <20 /HPF (NONE SEEN); Urine Culture Reflex Order NOT NEEDED; Urine RBC <5 /HPF (NONE SEEN); Urine Urothelial Cells <5 /HPF (NONE SEEN)
[2019-07-31] MEDS ORDERED: MORPHINE 4 MG/ML SYR ONE (00:24)
[2019-07-31] MEDS ORDERED: ONDANSETRON 4 MG/2 ML VIAL ONE (00:24)
[2019-07-31] MEDS ORDERED: Levofloxacin500mg IV 500 MG/100 ML BAG IV ONE (00:49)
[2019-07-31] MEDS ORDERED: METRONIDAZOLE 500mg IVPB 500 MG/100 ML BAG IV ONE (00:49)
[2019-07-31 01:22] LABS: Urine Blood TRACE (NEG); Urine Glucose NEGATIVE (NEG); Urine Protein NEGATIVE (NEG); Urine Specific Gravity <1.005 (1.005-1.030)
[2019-07-31] MEDS ORDERED: FENTANYL CITR 100 MCG/2 ML ONE (02:44)
--- NOTE | 2019-07-31 05:48 | ER ---
Nurse's Notes [facility] Name: Kurtis Lobo Age: 44 yrs Sex: Male : 1975 Arrival Date: 07/30/2019 Time: 21:50 Bed 2 Private MD: Diagnosis: Fever of other and unknown origin Presentation: 07/30 21:53 Presenting complaint: Patient states: Yesterday, I had a colon resection and was ca1 discharge today. And about an a hour ago, I had a fever at 101.8. Denies cough and congestion. Transition of care: patient was not received from another setting of care. Onset of symptoms was July 30, 2019. Risk Assessment: Do you want to hurt yourself or someone else? Patient reports no desire to harm self or others. Initial Sepsis Screen: Does the patient meet any 2 criteria? No. Patient's initial sepsis screen is negative. Does the patient have a suspected source of infection? No. Patient's initial sepsis screen is negative. Care prior to arrival: None. 21:53 Method Of Arrival: Ambulatory ca1 21:53 Acuity: GEOFFREY 3 ca1 Historical: - Allergies: 21:58 Champagne; ca1 21:58 PENICILLINS; ca1 - PMHx: 21:58 Diverticulitis; ca1 - PSHx: 21:58 Colon Surgery; ca1 21:58 Stapendectomy; ca1 - Immunization history:: Adult Immunizations up to date, Flu vaccine is up to date. - Coronavirus screen:: The patient has NOT traveled to [place], [place], or [place] in the past 14 days. The patient has NOT had contact with known/suspected case of Coronavirus?. - Social history:: Smoking status: Patient denies any tobacco usage or history of. - Ebola Screening: : Patient negative for fever greater than or equal to 101.5 degrees Fahrenheit, and additional compatible Ebola Virus Disease symptoms Patient denies exposure to infectious person Patient denies travel to an Ebola-affected area in the 21 days before illness onset No symptoms or risks identified at this time. Screenin:11 Abuse screen: Denies threats or abuse. Denies injuries from another. Nutritional rv screening: No deficits noted. Tuberculosis screening: No symptoms or risk factors identified. Fall Risk None identified. Assessment: 22:06 Reassessment: post op surgical incisions noted on the abdomen. no bleeding or rv discharge. General: Appears in no apparent distress. uncomfortable, Behavior is calm, cooperative. Pain: Complains of pain in abdomen. Neuro: Level of Consciousness is awake, alert, obeys commands, Oriented to person, place, time, situation. Cardiovascular: Patient's skin is warm and dry. Rhythm is sinus tachycardia. Respiratory: Airway is patent. GI: Abdomen is non-distended, Reports lower abdominal pain. Derm: Bruising that is dark purple, on surgical wound. 07/31 02:35 Reassessment: Patient appears in no apparent distress at this time. Dr Reeves at ao bedside talking to patient. 03:46 Reassessment: Patient appears in no apparent distress at this time. Patient and/or rv family updated on plan of care and expected duration. Pain level reassessed. Patient is alert, oriented x 3, equal unlabored respirations, skin warm/dry/pink. CT SCAN RESULT EXPLAINED BY DR BALDERAS. PATIENT IS ADVISED TO FF UP WITH SURGEON. DISCHARGED ALERT, ORIENTED AND AMBULATORY, WITH . Patient states feeling better. Vital Signs: 07/30 21:58 BP 121 / 69; Pulse 108; Resp 19 S; Temp 99.4(O); Pulse Ox 98% on R/A; Weight 77.11 kg ca1 (R); Height 5 ft. 8 in. (172.72 cm) (R); Pain 9/10; 07/31 00:42 BP 125 / 83; Pulse 94; Resp 16; Temp 98.8(O); Pulse Ox 99% on R/A; ar5 02:00 BP 126 / 82; Pulse 95; Resp 16; Pulse Ox 98% on R/A; ao 03:00 BP 131 / 81; Pulse 89; Resp 18; Pulse Ox 98% ; rv 03:46 BP 125 / 86; Pulse 93; Resp 16; Pulse Ox 97% on R/A; rv 07/30 21:58 Body Mass Index 25.85 (77.11 kg, 172.72 cm) ca1 ED Course: 07/30 21:50 Patient arrived in ED. ag3 21:56 Triage completed. ca1 21:58 Arm band placed on right wrist. ca1 22:01 Mohinder Mir, YANY is Primary Nurse. rv 22:05 Wisam Balderas MD is Attending Physician. tw4 22:11 Patient has correct armband on for positive identification. Pulse ox on. NIBP on. rv 22:20 Inserted saline lock: 18 gauge in right antecubital area, using aseptic technique. rv Blood collected. 22:20 Initial lab(s) drawn, by me, sent to lab. First set of blood cultures drawn by me. rv 07/31 00:59 CT completed. Patient tolerated procedure well. Patient moved to CT WALKED. Patient moved back from CT. 01:38 CT Abd/Pelvis - IV Contrast Only In Process Unspecified. EDMS 03:49 No provider procedures requiring assistance completed. IV discontinued, intact, rv bleeding controlled, No redness/swelling at site. Pressure dressing applied. Administered Medications: 07/30 22:32 Drug: NS 0.9% 1000 ml Route: IV; Rate: 1 bolus; Site: right antecubital; ao 07/31 00:40 Drug: NS 0.9% 1000 ml Route: IV; Rate: 1 bolus; Site: right antecubital; rv 03:48 Follow up: IV Status: Completed infusion rv 00:59 Drug: LevaQUIN 500 mg Volume: 100 ml; Route: IVPB; Infused Over: 60 mins; Site: right ao antecubital; 03:48 Follow up: IV Status: Completed infusion rv 01:00 Drug: Flagyl 500 mg Volume: 100 ml; Route: IVPB; Rate: 200 ml/hr; Infused Over: 30 ao mins; Site: right antecubital; 03:48 Follow up: IV Status: Completed infusion rv 02:44 Drug: fentaNYL (PF) 50 mcg {Note: Rass 0.} Route: IVP; Site: right antecubital; ao 03:48 Follow up: Response: No adverse reaction; RASS: Alert and Calm (0) rv Outcome: 03:30 Discharge ordered by . tw4 03:49 Discharged to home ambulatory, with family. rv 03:49 Condition: good 03:49 Discharge instructions given to patient, Instructed on discharge instructions, follow up and referral plans. medication usage, Demonstrated understanding of instructions, follow-up care, medications, Prescriptions given X 2. 03:49 Patient left the ED. rv Signatures: Dispatcher [employer] EDMS Sundeep Matthew Timothy Plasencia RN RN ao Wadley, Terrence, MD MD tw4 Mohinder Mir RN RN rv Evelin Martell3 Dina Rosario ar5 Pinky Huynh RN RN ca1 Corrections: (The following items were deleted from the chart) 02:36 02:44 fentaNYL (PF) 50 mcg IVP in right antecubital ao ao
--- NOTE | 2019-07-31 05:49 | EDPHYS ---
Physician Documentation [facility] Name: Kurtis Lobo Age: 44 yrs Sex: Male : 1975 Arrival Date: 07/30/2019 Time: 21:50 Bed 2 Private MD: ED Physician Wisam Meza HPI: 07/31 03:21 This 44 yrs old Male presents to ER via Ambulatory with complaints of Fever. tw4 03:21 The patient reports fever, that was measured at 101 degrees Fahrenheit. Onset: The tw4 symptoms/episode began/occurred today. Modifying factors: recent surgery less than 24 hours ago. Associated signs and symptoms: Pertinent positives: abdominal pain, Pertinent negatives: altered mental status, backache, chest pain, chills, cough, myalgias, shortness of breath. Severity of symptoms: At their worst the symptoms were moderate in the emergency department the symptoms have improved. The patient has not experienced similar symptoms in the past. Historical: - Allergies: 07/30 21:58 Champagne; ca1 21:58 PENICILLINS; ca1 - PMHx: 21:58 Diverticulitis; ca1 - PSHx: 21:58 Colon Surgery; ca1 21:58 Stapendectomy; ca1 - Immunization history:: Adult Immunizations up to date, Flu vaccine is up to date. - Coronavirus screen:: The patient has NOT traveled to [place], [place], or [place] in the past 14 days. The patient has NOT had contact with known/suspected case of Coronavirus?. - Social history:: Smoking status: Patient denies any tobacco usage or history of. - Ebola Screening: : Patient negative for fever greater than or equal to 101.5 degrees Fahrenheit, and additional compatible Ebola Virus Disease symptoms Patient denies exposure to infectious person Patient denies travel to an Ebola-affected area in the 21 days before illness onset No symptoms or risks identified at this time. ROS: 07/31 03:21 Eyes: Negative for injury, pain, redness, and discharge, ENT: Negative for injury, tw4 pain, and discharge, Cardiovascular: Negative for chest pain, palpitations, and edema, Respiratory: Negative for shortness of breath, cough, wheezing, and pleuritic chest pain. Back: Negative for injury and pain, MS/Extremity: Negative for injury and deformity, Skin: Negative for injury, rash, and discoloration. Constitutional: Positive for fever, Negative for body aches, chills, fatigue, malaise, poor PO intake, weight loss. Abdomen/GI: Positive for abdominal pain, Negative for nausea and vomiting, nausea, vomiting, and diarrhea, nausea, vomiting, diarrhea, constipation, abdominal cramps, abdominal distension, anorexia, dysphagia, hematemesis, black/tarry stool, rectal pain. Exam: 03:21 Constitutional: This is a well developed, well nourished patient who is awake, alert, tw4 and in no acute distress. Eyes: Pupils equal round and reactive to light, extra-ocular motions intact. Lids and lashes normal. Conjunctiva and sclera are non-icteric and not injected. Cornea within normal limits. Periorbital areas with no swelling, redness, or edema. Chest/axilla: Normal chest wall appearance and motion. Nontender with no deformity. No lesions are appreciated. Cardiovascular: Regular rate and rhythm with a normal S1 and S2. No gallops, murmurs, or rubs. Normal PMI, no JVD. No pulse deficits. Respiratory: Lungs have equal breath sounds bilaterally, clear to auscultation and percussion. No rales, rhonchi or wheezes noted. No increased work of breathing, no retractions or nasal flaring. Back: No spinal tenderness. No costovertebral tenderness. Full range of motion. MS/ Extremity: Pulses equal, no cyanosis. Neurovascular intact. Full, normal range of motion. Neuro: Awake and alert, GCS 15, oriented to person, place, time, and situation. Cranial nerves II-XII grossly intact. Motor strength 5/5 in all extremities. Sensory grossly intact. Cerebellar exam normal. Normal gait. 03:21 Abdomen/GI: Inspection: distension, that is mild, scar(s), are noted in the epigastric area, umbilical area and suprapubic area, Bowel sounds: diminished, Palpation: moderate abdominal tenderness. Vital Signs: 07/30 21:58 BP 121 / 69; Pulse 108; Resp 19 S; Temp 99.4(O); Pulse Ox 98% on R/A; Weight 77.11 kg ca1 (R); Height 5 ft. 8 in. (172.72 cm) (R); Pain 9/10; 07/31 00:42 BP 125 / 83; Pulse 94; Resp 16; Temp 98.8(O); Pulse Ox 99% on R/A; ar5 02:00 BP 126 / 82; Pulse 95; Resp 16; Pulse Ox 98% on R/A; ao 03:00 BP 131 / 81; Pulse 89; Resp 18; Pulse Ox 98% ; rv 03:46 BP 125 / 86; Pulse 93; Resp 16; Pulse Ox 97% on R/A; rv 07/30 21:58 Body Mass Index 25.85 (77.11 kg, 172.72 cm) ca1 MDM: 07/30 22:11 Patient medically screened. tw4 07/31 03:31 Differential diagnosis: viral Infection, bacterial infection, UTI, gastroenteritis. tw4 Data reviewed: vital signs, nurses notes. Data reviewed: lab test result(s), CBC, electrolytes, hepatic panel, radiologic studies, CT scan. Data interpreted: Pulse oximetry: Interpretation: normal. Counseling: I had a detailed discussion with the patient and/or guardian regarding: the historical points, exam findings, and any diagnostic results supporting the discharge/admit diagnosis, lab results, radiology results. Medication response: FENTANYL. Response to treatment: the patient's symptoms have resolved after treatment, and as a result, I will discharge patient. Special discussion: Based on the patient's Hx, exam, and Dx evaluation, there is no indication for emergent surgery or inpatient Tx. It is understood by the patient/guardian that if the Sx's persist or worsen they need to return immediately for re-evaluation. I discussed with the patient/guardian in detail that at this point there is no indication for admission to the hospital. It is understood, however, that if the symptoms persist or worsen the patient needs to return immediately for re-evaluation. ED course: DISCUSSED CASE WITH PTS SURGEON AND BASED ON PATIENTS WORKUP IN THE ED INCLUDING NEGATIVE IMAGINE STUDIES THAT PT CAN DISCHARGED HOME WITH FOLLOWUP. 07/30 22:25 Order name: Amylase, Serum; Complete Time: 00:07/30 22:25 Order name: Basic Metabolic Panel; Complete Time: :07/31 00:28 Interpretation: Normal except: CL 110; GFR 68; CA 8.1. tw4 07/30 22:25 Order name: Blood Culture Adult (2) rv 07/30 22:25 Order name: CBC with Diff; Complete Time: 00:07/31 00:28 Interpretation: Normal except: RBC 4.20; HGB 13.0; HCT 38.5; LYM% 10.0; SVITLANA% 78.2; NEUT tw4 A 8.2. 07/30 22:25 Order name: Ckmb; Complete Time: 00:27 07/30 22:25 Order name: CPK; Complete Time: 00:27 07/30 22:25 Order name: Lactate; Complete Time: 00:07/31 00:29 Interpretation: Within normal limits: LAC 1.1. 07/30 22:25 Order name: LFT's; Complete Time: 00:07/31 00:28 Interpretation: Normal except: ALB 3.2; GLOB 3.7; A/G 0.9. 07/30 22:25 Order name: Lipase; Complete Time: 00:28 07/30 22:25 Order name: Procalcitonin; Complete Time: 00:07/31 00:28 Interpretation: Abnormal: Procalcitonin 1.65. 07/30 22:25 Order name: Protime (+inr); Complete Time: 00:07/30 22:25 Order name: Ptt, Activated; Complete Time: 00:07/30 22:25 Order name: Troponin (emerg Dept Use Only); Complete Time: 00:07/30 22:25 Order name: Urine Microscopic Only; Complete Time: 00:07/30 22:25 Order name: Cardiac monitoring; Complete Time: 22:45 07/30 22:25 Order name: IV Saline Lock - Large Bore; Complete Time: 22:45 07/30 22:25 Order name: Labs collected and sent; Complete Time: 22:46 07/30 22:25 Order name: O2 Per Protocol; Complete Time: 22:46 07/30 22:25 Order name: O2 Sat Monitoring; Complete Time: 22:46 07/30 22:25 Order name: Urine Dipstick-Ancillary (obtain specimen); Complete Time: 00:06 07/30 23:43 Order name: Urine Dipstick--Ancillary (enter results); Complete Time: 02:11 cm6 07/31 02:17 Interpretation: Normal except: UBLD TRACE. 07/31 00:27 Order name: CT Abd/Pelvis - IV Contrast Only tw4 Administered Medications: 07/30 22:32 Drug: NS 0.9% 1000 ml Route: IV; Rate: 1 bolus; Site: right antecubital; ao 07/31 00:40 Drug: NS 0.9% 1000 ml Route: IV; Rate: 1 bolus; Site: right antecubital; rv 03:48 Follow up: IV Status: Completed infusion rv 00:59 Drug: LevaQUIN 500 mg Volume: 100 ml; Route: IVPB; Infused Over: 60 mins; Site: right ao antecubital; 03:48 Follow up: IV Status: Completed infusion rv 01:00 Drug: Flagyl 500 mg Volume: 100 ml; Route: IVPB; Rate: 200 ml/hr; Infused Over: 30 ao mins; Site: right antecubital; 03:48 Follow up: IV Status: Completed infusion rv 02:44 Drug: fentaNYL (PF) 50 mcg {Note: Rass 0.} Route: IVP; Site: right antecubital; ao 03:48 Follow up: Response: No adverse reaction; RASS: Alert and Calm (0) rv Disposition: 07/31/19 03:30 Discharged to Home. Impression: Fever of other and unknown origin. - Condition is Stable. - Discharge Instructions: Fever, Adult. - Prescriptions for Cipro 500 mg Oral Tablet - take 1 tablet by ORAL route every 12 hours for 10 days; 20 tablet. Flagyl 500 mg Oral Tablet - take 1 tablet by ORAL route every 12 hours for 7 days; 14 tablet. - Medication Reconciliation Form, Thank You Letter, Antibiotic Education, Prescription Opioid Use form. - Follow up: Private Physician; When: Upon discharge from the Emergency Department; Reason: Recheck today's complaints, Continuance of care. - Problem is new. - Symptoms have improved. Signatures: Dispatcher [employer] EDMS Timothy Plasencia RN RN ao Wadley, Terrence, MD MD tw4 Mohinder Mir RN RN rv Pinky Huynh RN RN ca1 Corrections: (The following items were deleted from the chart) 03:49 03:30 07/31/2019 03:30 Discharged to Home. Impression: Fever of other and unknown rv origin. Condition is Stable. Forms are Medication Reconciliation Form, Thank You Letter, Antibiotic Education, Prescription Opioid Use. Follow up: Private Physician; When: Upon discharge from the Emergency Department; Reason: Recheck today's complaints, Continuance of care. Problem is new. Symptoms have improved. tw4
--- NOTE | 2019-07-31 09:53 | RAD REPORT ---
EXAM DESCRIPTION: CT - Abdomen Pelvis W Contrast - 07/31/2019 3:57 am CLINICAL HISTORY: Abdominal pain postop bowel resection 2 days ago TECHNIQUE: Contiguous axial images obtained through the abdomen and pelvis following the uneventful administration of IV contrast. Coronal and sagittal reformatted images were provided. This exam was performed according to our departmental dose-optimization program, which includes autom ated exposure control, adjustment of the mA and/or kV according to patient size and/or use of iterati ve reconstruction technique. COMPARISON: 04/29/2018 FINDINGS: Lung bases: Clear Liver: Unremarkable Gallbladder and biliary system: Unremarkable Pancreas: Unremarkable Spleen: Unremarkable Adrenals: Unremarkable Kidneys: Normal renal cortical enhancement. No calculi. Minimal renal collecting system fullness and mild urothelial thickening bilaterally. Bowel: Sigmoid anastomosis with mild surrounding infiltrative changes. Scattered colonic diverticula without adjacent inflammatory change. Moderate stool within the proximal to mid large bowel. No obstr uction. No appreciable mucosal thickening. Appendix: Normal caliber appendix. No findings to suggest acute appendicitis. Urinary bladder: Mild circumferential urinary bladder wall thickening. There are a couple nondependen t gas foci. Reproductive: Unremarkable as visualized Lymph nodes: No pathologically enlarged lymph nodes. Peritoneum: Minimal free fluid within the pelvis. Scattered free gas foci subjacent to the ventral ab dominal wall and within the left lower quadrant. Vessels: Mild atherosclerotic disease. No abdominal aortic aneurysm. Abdominal wall: Postsurgical changes at the ventral and right lateral abdominal wall with scattered s uperficial and deep soft tissue gas. Bones: Mild multilevel spondylosis. No acute fracture. IMPRESSION: 1. Recent postsurgical changes at the sigmoid colon. Mild surrounding infiltrative sherly nges and minimal free fluid. Scattered free gas foci presumably postoperative. No discrete fluid lazaro ection. 2. Minimal renal collecting system fullness and urothelial thickening bilaterally. Mild circumferen tial urinary bladder wall thickening. Please correlate clinically for urinary tract infection and cys titis. Nondependent gas foci within the urinary bladder likely secondary to recent instrumentation. 3. Other findings as above. Electronically signed by: Chelle Bansal MD 07/31/2019 1:38 AM [employer] Due to temporary technical issues with the PACS/Fluency reporting system, reports are being signed by the in house radiologist as a courtesy to ensure prompt reporting. The interpreting radiologist is f ully responsible for the content of the report.
[2019-07-31 13:42] VITALS: TEMP 98.8
[2019-07-31 13:47] VITALS: BP 125/86; O2SAT 97
== END 2019-07-31 03:49 | disposition home or self-care (01) ==
LOC: ER 21:48
DX: R50.9 Fever, unspecified (principal); Z88.0 Allergy status to penicillin; Z91.018 Allergy to other foods
CPT/HCPCS: 96365; 87040 ×2; 85025; 80048; 36415; 82150; 82550; 85610; 80076; 83605; 85730; 84484; 82553; 83690; 84145; 74177; 96375; 99285; 96366; Q9967; J3010; J7030; J2405; 81003; 81015